=== PATIENT | male | born 1960 | race African-American/Black ===

== ENCOUNTER 2016-11-05 13:38 | Emergency (ER) | payer MEDICARE ==
[~2016-11-05] VITALS: Ht 177.8 cm; Wt 61.0 kg
[~2016-11-05 13:38] MED LIST: CIPR-9 PO; COBI1TAB PO; DOLU1TAB PO; EMTR1TAB PO; HYDR-3533 PO
[2016-11-05 13:50] VITALS: BP 181/107; PULSE 98; RESP 28; TEMP 98.3; O2SAT 90
[2016-11-05 13:55] VITALS: BP 181/107; PULSE 98; RESP 26; TEMP 98.3; O2SAT 97
[2016-11-05 14:04] VITALS: O2SAT 97
[2016-11-05 14:11] LABS: AUTOMATED NEUTROPHIL # 4.9 TH/MM3 (1.8-7.7); BASOPHIL # 0.1 TH/MM3 (0-0.2); BASOPHIL % 1.4 % (0.0-2.0); EOSINOPHIL # 0.5 TH/MM3 (0-0.4); EOSINOPHIL % 5.6 % (0.0-4.0); HEMATOCRIT 46.7 % (39.0-51.0); HEMO FLAGS DIFF FINAL; LYMPH % 30.2 % (9.0-44.0); LYMPHOCYTE # 2.7 TH/MM3 (1.0-4.8); MEAN CORPUSCULAR HEMOGLOBIN 30.4 PG (27.0-34.0); MEAN CORPUSCULAR HGB CONC 33.8 % (32.0-36.0); MONO % 8.1 % (0.0-8.0); NEUT % 54.7 % (16.0-70.0); PLATELET COUNT 205 TH/MM3 (150-450); RED BLOOD COUNT 5.19 MIL/MM3 (4.50-5.90); RED CELL DISTRIBUTION WIDTH 12.7 % (11.6-17.2); WHITE BLOOD COUNT 8.9 TH/MM3 (4.0-11.0)
[2016-11-05] MEDS: RESP: ALBUTEROL 2.5 MG/IPRATROPIUM 0.5 MG NEB (SCH) INH ×2 (14:12→14:13)
[2016-11-05] MEDS ORDERED: methylPREDNISolone SOD SUCC 125 MG/2 ML VIAL IVP ONE (14:15)
[2016-11-05] MEDS ORDERED: SODIUM CHLORIDE 0.9% FLUSH 10 ML FLUSH IVF PRN (14:15)
[2016-11-05 14:26] LABS: CHLORIDE 107 MEQ/L (98-107); POTASSIUM 3.9 MEQ/L (3.5-5.1); SODIUM (NA) 140 MEQ/L (136-145)
--- NOTE | 2016-11-05 14:26 | PD ---
HPI Chief Complaint: Respiratory Distress Time Seen by Provider: 13:49 Travel History International Travel<30 days: No Contact w/Intl Traveler<30days: No Traveled to known affect area: No History of Present Illness HPI Is a 56-year-old man who presents to the emergency department complaining of shortness of breath for the past month with worsening wheezing and coughing, worse with exposure to the outsides, associated with productive cough, and some subjective fevers. His a history of HIV and AIDS, diagnosed 2000, on antiretrovirals, with last CD4 count that he thinks was "good". He has no history of diagnosed lung disease on recent multiple previous episodes similar to this that he always associates with allergy-type symptoms. History Past Medical History Narrative Medical HIV/AIDS, diagnosed 2000, CD4 count reportedly good Hyperglycemic Tetanus Vaccination: > 5 Years Influenza Vaccination: No Social History Alcohol Use: Yes (1 pint of rum will last him a month.) Tobacco Use: Yes (1/2 PPD) Allergies-Medications (Allergen,Severity, Reaction): Coded Allergies: *MDRO Multi-Drug Resistant Organism (Verified Adverse Reaction, Unknown, ) MRSA (sputum) 2007 Reported Meds & Prescriptions Reported Meds & Active Scripts Active Reported Tybost (Cobicistat) 150 Mg Tab 150 Mg PO DAILY Truvada (Emtricitabine-Tenofovir Disoproxil Fumarate) 200-300 Mg Tab 1 Tab PO DAILY Tivicay (Dolutegravir Sodium) 50 Mg Tab 50 Mg PO DAILY Review of Systems Except as stated in HPI: all other systems reviewed are Neg Physical Exam Narrative GENERAL: 56 year-old man, generally well-appearing, mild respiratory distress. SKIN: Focused skin assessment warm/dry. HEAD: Atraumatic. Normocephalic. EYES: Pupils equal and round. No scleral icterus. No injection or drainage. ENT: No nasal bleeding or discharge. Mucous membranes pink and moist. Some temporal wasting. NECK: Trachea midline. No JVD. CARDIOVASCULAR: Regular rate and rhythm. No murmur appreciated. RESPIRATORY: Mild respiratory distress, deep breaths, she speaking in short sentences, moderate diffuse wheezing is fairly pronounced. GASTROINTESTINAL: Abdomen soft, non-tender, nondistended. Hepatic and splenic margins not palpable. MUSCULOSKELETAL: No obvious deformities. No edema. NEUROLOGICAL: Awake and alert. No obvious cranial nerve deficits. Motor grossly within normal limits. Normal speech. PSYCHIATRIC: Appropriate mood and affect; insight and judgment normal. Data Data Last Documented VS Vital Signs Date Time Temp Pulse Resp B/P Pulse Ox O2 Delivery O2 Flow Rate FiO2 11/05/16 15:17 118 18 160/78 99 Room Air 11/05/16 14:04 2 11/05/16 13:55 98.3 Orders Complete Blood Count With Diff (11/05/16 14:02) Comprehensive Metabolic Panel (11/05/16 14:02) B-Type Natriuretic Peptide (11/05/16 14:02) Iv Access Insert/Monitor (11/05/16 14:02) Electrocardiogram (11/05/16 14:02) Ecg Monitoring (11/05/16 14:02) Oximetry (11/05/16 14:02) Oxygen Administration (11/05/16 14:02) Chest, Single Ap (11/05/16 14:02) Sodium Chloride 0.9% Flush (Ns Flush) (11/05/16 14:15) Methylprednisolone So Succ Inj (Solumedr (11/05/16 14:15) Albuterol-Ipratropium Neb (Duoneb Neb) (11/05/16 14:15) Azithromycin (Zithromax) (11/05/16 15:30) Albuterol Hfa Inh (Proair Hfa Inh) (11/05/16 15:30) Spacer / Device For Mdi (Spacer / Device (11/05/16 15:30) Labs Laboratory Tests Test 11/05/16 14:05 White Blood Count 8.9 TH/MM3 Red Blood Count 5.19 MIL/MM3 Hemoglobin 15.8 GM/DL Hematocrit 46.7 % Mean Corpuscular Volume 90.0 FL Mean Corpuscular Hemoglobin 30.4 PG Mean Corpuscular Hemoglobin 33.8 % Concent Red Cell Distribution Width 12.7 % Platelet Count 205 TH/MM3 Mean Platelet Volume 8.7 FL Neutrophils (%) (Auto) 54.7 % Lymphocytes (%) (Auto) 30.2 % Monocytes (%) (Auto) 8.1 % Eosinophils (%) (Auto) 5.6 % Basophils (%) (Auto) 1.4 % Neutrophils # (Auto) 4.9 TH/MM3 Lymphocytes # (Auto) 2.7 TH/MM3 Monocytes # (Auto) 0.7 TH/MM3 Eosinophils # (Auto) 0.5 TH/MM3 Basophils # (Auto) 0.1 TH/MM3 CBC Comment DIFF FINAL Differential Comment Sodium Level 140 MEQ/L Potassium Level 3.9 MEQ/L Chloride Level 107 MEQ/L Carbon Dioxide Level 27.1 MEQ/L Anion Gap 6 MEQ/L Blood Urea Nitrogen 10 MG/DL Creatinine 1.40 MG/DL Estimat Glomerular Filtration 64 ML/MIN Rate Random Glucose 101 MG/DL Calcium Level 9.0 MG/DL Total Bilirubin 0.4 MG/DL Aspartate Amino Transf 25 U/L (AST/SGOT) Alanine Aminotransferase 28 U/L (ALT/SGPT) Alkaline Phosphatase 63 U/L B-Type Natriuretic Peptide 7 PG/ML Total Protein 8.0 GM/DL Albumin 3.9 GM/DL [facility] Medical Decision Making Medical Screen Exam Complete: Yes Emergency Medical Condition: Yes Interpretation(s) Normal sinus rhythm at a rate of 86, normal axis, normal intervals, no definite evidence of acute ischemia. LABS: CBC is unremarkable. CMP shows a creatinine 1.4 BNP 7 Chest x-ray: No acute disease. Differential Diagnosis COPD, CHF, pneumonia, pleural effusion, other Narrative Course Medical decision-making INITIAL cause a 56-year-old man who presents to the emergency department with a history of HIV, on meds, with shortness of breath and wheezing suggestive of obstructive lung disease. He looks well. He may have an allergic complement to his disease. We'll check x-ray, labs, give steroids bronchodilators antibiotics and reassess. FINAL: Patient feeling much improved. Still little bit of wheezing. No respiratory distress. Discussed with patient. He would really prefer to be at home with his who manages help. She is sick as well. We'll try medications including bronchodilators steroids teaching use a spacer, and continue antibiotics. Diagnosis Primary Impression: Reactive airway disease Additional Instructions: Take medications as prescribed including albuterol inhaler every 4-6 hours, prednisone daily as prescribed, and azithromycin as prescribed. Follow-up with your primary doctor in 2-4 days. Return to the emergency department for any worsening trouble breathing, or any other new or worsening symptoms. Med/Other Pt SpecificInfo: Prescription(s) given Scripts Albuterol 18 GM Inh (Ventolin Hfa 18 GM Inh)90 Mcg/Act Aer2 Puff INH Q4-6H PRN ( SHORTNESS OF BREATH) #1 INHALER Prov:Darwin Neely MD 11/05/16 Prednisone (Deltasone)20 Mg Tab40 Mg PO DAILY 10 Days Prov:Darwin Neely MD 11/05/16 Azithromycin 250 Mg [id number] Mg PO DAILY 4 Days Prov:Darwin Neely MD 11/05/16 Disposition: 01 DISCHARGE HOME Condition: Stable Darwin Neely MD Nov 05, 2016 14:26
[2016-11-05 14:29] LABS: ANION GAP 6 MEQ/L (5-15); BICARBONATE 27.1 MEQ/L (21.0-32.0); BLOOD UREA NITROGEN 10 MG/DL (7-18)
--- NOTE | 2016-11-05 14:29 | RADRPT ---
EXAM DATE/TIME: 11/05/2016 14:20 [facility] COMPARISON: CHEST SINGLE AP, February 23, 2016, 7:15. INDICATIONS : Short of breath MEDICAL HISTORY : Bronchitis, pneumonia SURGICAL HISTORY : None. ENCOUNTER: Initial ACUITY: 1 day PAIN SCORE: 0/10 LOCATION: Bilateral chest FINDINGS: A single view of the chest demonstrates the lungs to be symmetrically aerated without evidence of mas s, infiltrate or effusion. The cardiomediastinal contours are unremarkable. Osseous structures are intact. CONCLUSION: No acute disease. Board Certified Radiologist. This report was verified electronically. Clement Guzmán MD FACR on November 05, 2016 at 14:27
[2016-11-05 14:32] LABS: ALT (GPT) 28 U/L (12-78); AST (GOT) 25 U/L (15-37)
[2016-11-05 14:33] LABS: GLOMERULAR FILTRATION RATE 64 ML/MIN (>89)
[2016-11-05 14:34] LABS: TOTAL BILIRUBIN ADULT 0.4 MG/DL (0.2-1.0)
[2016-11-05 14:35] LABS: ALKALINE PHOSPHATASE 63 U/L (45-117)
[2016-11-05 15:17] VITALS: BP 160/78; PULSE 118; RESP 18; O2SAT 99
[2016-11-05] MEDS ORDERED: VENTAER INH (15:23)
[2016-11-05] MEDS ORDERED: AZIT250T3 PO (15:23)
[2016-11-05] MEDS ORDERED: PRED-503 PO (15:23)
[2016-11-05] MEDS ORDERED: AZITHROMYCIN 250 MG TAB PO ONE (15:30)
[2016-11-05] MEDS ORDERED: ALBUTEROL SULFATE 90 MCG/ACT HFA 8 GM INHALER INH ONE (15:30)
[2016-11-05] MEDS ORDERED: SPACER/DEVICE FOR MDI INH SCH (15:30)
--- NOTE | 2016-11-06 13:17 | EKG ---
Date Performed: 11/05/2016 Time Performed: 14:08:15 PTAGE: 56 years EKG: Sinus rhythm WITH MARKED SINUS ARRHYTHMIA POSSIBLE RIGHT VENTRICULAR CONDUCTION DELAY BORDERLINE ECG PREVIOUS TRACING : 02/23/2016 06.53 Since previous tracing, no significant change noted DOCTOR: Shireen Limon Interpretating Date/Time 11/06/2016 13:17:13
== END 2016-11-05 15:51 | disposition home or self-care (01) ==
LOC: PHED 13:38
DX: J45.909 Unspecified asthma, uncomplicated (principal); B20 Human immunodeficiency virus [HIV] disease; R50.9 Fever, unspecified; R94.31 Abnormal electrocardiogram [ECG] [EKG]; F17.200 Nicotine dependence, unspecified, uncomplicated
CPT/HCPCS: 71010; 80053; 83880; 85025; 93005; 94640; 94664; 96374; 99285; J2930